=== PATIENT | male | born 1940 | race Caucasian/White ===

== ENCOUNTER 2017-05-30 07:38 | Day surgery (SDC) | payer MEDICARE ==
[2015-02-25 08:00] VITALS: BMI 24.7
--- NOTE | 2017-05-30 09:17 | CP.SDSHP ---
Same Day Surgery H & P - History Proposed Procedure: High risk screening colonoscopy Pre-Op Diagnosis: History of polyps - Previous Medical/Surgical History Cardiac: Hypertension, Previous [place] Misc: Other Comments: Hyperlipidemia, prostate cancer, arthritis Previous Surgical History: Angioplasty - Allergies Allergies: Allergies No Known Allergies Allergy (Verified 05/30/17 08:27) - Current Medications Current Medications: See reconciliation sheet - Physical Exam General Appearance: WD WN female in NAD Vital Signs: Vital Signs 05/30/17 08:15 Temperature 97.5 F L Pulse Rate 80 Respiratory 20 Rate Blood Pressure 148/75 O2 Sat by Pulse 97 Oximetry Mental Status: Alert & Oriented x3 Neuro: WNL Heart: WNL Lungs: WNL GI: WNL - {Optional Preform as Required} Abdomen: WNL - Impression Impression: History of polyps Pt. Evaluated Today:Candidate for Anesthesia & Procedure: Yes - Date & Time Date: 05/30/17 Time: 09:40 Short Stay Discharge - Short Stay Discharge Admitting Diagnosis/Reason for Visit: PERSONAL HISTORY OF COLON POLYPS Disposition: HOME/ ROUTINE
[2017-05-30] MEDS ORDERED: Lactated Ringer's 1,000 ML IV ONE (09:50)
[2017-05-30] MEDS ORDERED: Propofol 10 mg/ml Inj (20 ML) ONE (09:52)
[2017-05-30] MEDS ORDERED: Lactated Ringer's 500 ML IV SCH (10:00)
[2017-05-30 11:05] VITALS: O2SAT 99
[2017-05-30 11:30] VITALS: BP 149/80; PULSE 79; RESP 19; TEMP 97
== END 2017-05-30 11:25 | disposition home or self-care (01) ==
LOC: C.ENDO 07:38
PROVIDERS: ATTEND Internal Medicine Gastroenterology
DX: Z12.11 Encounter for screening for malignant neoplasm of colon (principal); K64.9 Unspecified hemorrhoids; D12.5 Benign neoplasm of sigmoid colon; D12.3 Benign neoplasm of transverse colon
CPT/HCPCS: 45385; 82948; 88305; J2704; J7120